=== PATIENT | female | born 1955 | race Caucasian/White ===

== ENCOUNTER → 2022-11-04 | Outpatient (CLI) | payer MEDICARE, SELFPAY ==
--- NOTE | 2022-11-04 10:20 | Diagnostic Imaging Report ---
INDICATION: Hypercholesterolemia. TECHNIQUE: A CT coronary calcium scoring study was performed with noncontrast images of the heart followed by calculation of the cardiac calcium score. Dose reduction protocol was used. FINDINGS: Raw data images demonstrate no focal infiltrate. There is no adenopathy in the mediastinum. The coronary calcium score was 0.2 for a tiny area of calcification in the LAD. The remaining territories were unremarkable. IMPRESSION: The coronary calcium score was 0.2, compatible with minimal plaque burden. Dictated by: Dictated on workstation # [id number]
== END ==
LOC: RAD FS 09:47
PROVIDERS: ATTEND Student in an Organized Health Care Education/Training Program
DX: E78.00 Pure hypercholesterolemia, unspecified (principal)
CPT/HCPCS: 75571